=== PATIENT | male | born 1945 | race Caucasian/White ===

== ENCOUNTER 2023-02-24 08:00 | Outpatient (CLI) | payer OTHER ==
[2023-02-24 09:24] LABS: Bilirubin Neg (Negative); Blood, Urine 10 (Negative); Clarity Clear (Clear); Glucose, Urine (Dipstick) Normal (Negative); Ketone, Urine Negative (Negative); Leukocyte Negative (Negative); Nitrite Negative (Negative); Protein, Urine (Dipstick) Negative (Neg-Trace); Specific Gravity, Urine 1.025 (1.005-1.030); Urobilinogen Normal mg/dL (Less than 2)
[2023-02-24 09:26] LABS: Hematocrit 42.8 % (38.8-50.0); Hemoglobin 14.3 g/dL (13.5-17.5); Mean Corpuscular HGB CONC 33.4 g/dL (32.0-36.0); Mean Corpuscular Hemoglobin 29.9 pg (27.0-33.0); Mean Corpuscular Volume 89.5 fl (81.2-95.1); Mean Platelet Volume 8.7 fl (7.4-10.4); Platelet Count 250 10x3/uL (150-450); RBC Distribution Width 14.6 % (11.5-14.5); Red Blood Cell (RBC) Count 4.78 10x6/uL (4.32-5.72); White Blood Cell (WBC) Count 6.9 10x3/uL (3.5-10.5)
[2023-02-24 09:54] LABS: Anion Gap 15 mmol/L (10-20); BUN (Urea Nitrogen) 19 mg/dL (8.4-25.7); Bacteria/HPF None Seen HPF (None Seen); Calc. Creatinine Clearance 0 mL/min (70-130); Calcium 9.2 mg/dL (7.8-10.44); Carbon Dioxide 23 mmol/L (23-31); Chloride 104 mmol/L (98-107); Estimated GFR 86; Glucose 106 mg/dL (83-110); Potassium 4.2 mmol/L (3.5-5.1); RBC/HPF 0-3 HPF (0-3); Sodium 138 mmol/L (136-145); Squamous Epithelial 0-3 HPF (0-3); WBC/HPF 0-3 HPF (0-3)
[2023-02-24 10:02] LABS: Prothrombin Time 10.4 sec (9.5-12.1)
== END 2023-02-24 08:01 | disposition home or self-care (01) ==
LOC: LABBT 08:00
PROVIDERS: ATTEND Urology
DX: Z01.818 Encounter for other preprocedural examination (principal); Z12.5 Encounter for screening for malignant neoplasm of prostate; N40.1 Benign prostatic hyperplasia with lower urinary tract symptoms; I10 Essential (primary) hypertension; N52.9 Male erectile dysfunction, unspecified; N50.0 Atrophy of testis; N47.1 Phimosis; R35.0 Frequency of micturition
CPT/HCPCS: 80048; 81001; 85027; 85610; 85730; 87086; 93005; 93010

== ENCOUNTER 2023-03-12 06:10 | Day surgery (SDC) | payer OTHER ==
[2023-02-24 08:39] VITALS: BMI 31.1
[2023-03-12] MEDS ORDERED: Fentanyl 250 MCG/5 ML VIAL ONE (06:28)
[2023-03-12] MEDS ORDERED: LevoFLOXacin 500 mg/D5W 100 ML BAG ONE (06:35)
[2023-03-12] MEDS ORDERED: CEFAZOLIN 2 GM VIAL ONE ×2 (06:35→07:27)
[2023-03-12] MEDS ORDERED: Sodium Chloride 0.9% 0 ML ONE (06:35)
[2023-03-12] MEDS ORDERED: Bupivacaine 0.25% HCL 30 ML VIAL ONE (06:41)
[2023-03-12] MEDS ORDERED: Bacitracin Zinc Ointment 30 gm TUBE ONE (06:41)
[2023-03-12] MEDS ORDERED: Dexamethasone 20 MG/5 ML VIAL ONE (07:20)
[2023-03-12] MEDS ORDERED: ePHEDrine Sulfate 50 MG/10 ML VIAL ONE (07:20)
[2023-03-12] MEDS ORDERED: Ondansetron PF 4 MG/2 ML Vial ONE (07:20)
[2023-03-12] MEDS ORDERED: Lidocaine 1% PF 5 ML VIAL ONE (07:20)
[2023-03-12] MEDS ORDERED: PROPOFOL 200 MG/20 ML VIAL ONE (07:20)
[2023-03-12] MEDS ORDERED: Sodium Chloride 0.9% 100 ML ONE (07:30)
[2023-03-12] MEDS ORDERED: Tamsulosin HCl 0.4 MG CAP ONE (09:20)
[2023-03-12] MEDS ORDERED: Phenazopyridine HCl 100 MG TAB ONE (09:20)
== END 2023-03-12 11:35 | disposition home or self-care (01) ==
LOC: SDC 06:10
PROVIDERS: ATTEND Urology
PROC: 0VTTXZZ Resection of Prepuce, External Approach (ICD-10-PCS; principal; 2023-03-12)
DX: N47.1 Phimosis (principal)
CPT/HCPCS: 88304; C1747; J1100; J1956; J2405; J2704; J3010; J3490; S0020

== ENCOUNTER 2025-04-08 09:49 | Outpatient (CLI) | payer OTHER ==
[2025-04-08 10:42] LABS: #Basophils Less than 0.03 10x3/uL (0.0-0.2); #Eosinophils 0.04 10x3/uL (0.0-0.7); #Monocytes 0.75 10x3/uL (0.11-0.59); #Neutrophils 2.77 10x3/uL (1.40-6.50); %Basophils 0.3 % (0.0-1.0); %Eosinophils 0.6 % (0.0-10.0); %Lymphocytes 45.0 % (21.0-51.0); %Monocytes 11.5 % (0.0-10.0); %Neutrophils 42.4 % (42.0-75.0); Hematocrit 43.5 % (42.0-52.0); Hemoglobin 13.9 g/dL (14.0-18.0); Mean Corpuscular Hemoglobin 29.4 pg (27.0-31.0); Mean Corpuscular Volume 92.0 fL (78.0-98.0); Platelet Count 202 10x3/uL (130-400); Red Blood Cell (RBC) Count 4.73 mill/uL (4.70-6.10); White Blood Cell (WBC) Count 6.53 10x3/uL (4.8-10.8)
[2025-04-08 10:50] LABS: Bacteria/HPF None Seen HPF (None Seen); Glucose, Urine (Dipstick) Normal (Negative); Leukocyte Negative Leu/uL (Negative); Protein, Urine (Dipstick) Negative (Neg-Trace); RBC/HPF 0-3 HPF (0-3); Specific Gravity, Urine 1.023 (1.002-1.036); WBC/HPF 0-3 HPF (0-3)
[2025-04-08 10:56] LABS: INR-International Normal Ratio 1.0; Prothrombin Time 13.0 sec (12.0-14.7)
[2025-04-08 10:57] LABS: PTT 29.0 sec (22.9-36.1)
[2025-04-08 11:21] LABS: Anion Gap 18 mmol/L (10-20); BUN (Urea Nitrogen) 14 mg/dL (8.4-25.7); Calc. Creatinine Clearance 0 mL/min (70-130); Calcium 9.1 mg/dL (7.8-10.44); Carbon Dioxide 21 mmol/L (23-31); Chloride 104 mmol/L (98-107); Glucose 105 mg/dL (83-110); Potassium 3.9 mmol/L (3.5-5.1); Sodium 139 mmol/L (136-145)
== END 2025-04-08 09:50 | disposition home or self-care (01) ==
LOC: LABBT 09:49
PROVIDERS: ATTEND Urology
DX: Z01.818 Encounter for other preprocedural examination (principal); Z12.5 Encounter for screening for malignant neoplasm of prostate; N40.1 Benign prostatic hyperplasia with lower urinary tract symptoms; N47.1 Phimosis; N52.9 Male erectile dysfunction, unspecified; I25.10 Atherosclerotic heart disease of native coronary artery without angina pectoris; N50.0 Atrophy of testis; N48.83 Acquired buried penis; R35.0 Frequency of micturition
CPT/HCPCS: 80048; 81001; 85025; 85610; 85730; 86850; 86900; 86901; 87086; 93005; 93010

== ENCOUNTER 2025-06-15 11:18 | Outpatient (CLI) | payer OTHER | END 2025-06-15 11:19 | disposition home or self-care (01) | LOC: BICRAD 11:18 | PROVIDERS: ATTEND Family Medicine | DX: M25.552 Pain in left hip (principal); R93.7 Abnormal findings on diagnostic imaging of other parts of musculoskeletal system ==